=== PATIENT | female | born 1960 | race Caucasian/White ===

== ENCOUNTER → 2016-11-01 | Outpatient (CLI) | payer BC, OTHER ==
--- NOTE | 2016-11-01 19:15 | DI ---
LEFT FOOT, 11/01/2016 2:53 PM: Clinical History: Left foot pain. Previous Exam: None at this facility. 3 views are submitted. There is no acute soft tissue, osseous, or joint abnormality. Arthritic spurri ng is present on both sides of the first metatarsophalangeal joint. Reading: There is no acute fracture or dislocation. Degenerative arthritic changes are present in the first me tatarsophalangeal joint.
== END ==
LOC: MOB RAD 15:16
PROVIDERS: ATTEND Family Medicine
DX: M79.672 Pain in left foot (principal); R30.0 Dysuria; M19.072 Primary osteoarthritis, left ankle and foot
CPT/HCPCS: 73630; 87077; 87088; 87186

== ENCOUNTER → 2016-12-20 | Outpatient (CLI) | payer BC, OTHER ==
[2016-12-20 11:38] LABS: FREE T4 (FREE THYROXINE) 0.83 ng/dL (0.93-1.71)
== END ==
LOC: MOB LAB 09:02
PROVIDERS: ATTEND Family Medicine
DX: E03.9 Hypothyroidism, unspecified (principal)
CPT/HCPCS: 36415; 84439; 84443